=== PATIENT | male | born 1985 | race Hispanic/Latino ===

== ENCOUNTER 2017-01-21 11:26 | Emergency (ER) | payer OTHER ==
[~2017-01-21] VITALS: Ht 160 cm; Wt 227.0 kg
[2017-01-21] MEDS ORDERED: NAPROSYN500 MG PO (13:26)
[2017-01-21 13:36] VITALS: BP 142/78
== END 2017-01-21 13:42 | disposition home or self-care (01) | DRG 605 ==
LOC: ED 11:26
DX: S20.211A Contusion of right front wall of thorax, initial encounter (principal); V53.6XXA Passenger in pick-up truck or van injured in collision with car, pick-up truck or van in traffic accident, initial encounter